=== PATIENT | male | born 1965 | race Caucasian/White ===

== ENCOUNTER 2023-07-11 10:44 | Observation (INO) ==
--- NOTE | 2023-06-06 10:25 | PAT Medication Instructions ---
Medication Instructions Date of Service June 06, 2023 Home Medications allopurinol 300 mg tablet 300 mg PO QAM hydrochlorothiazide 25 mg tablet 25 mg PO QAM lisinopril 40 mg tablet 40 mg PO QAM oxycodone 5 mg tablet 5 - 10 mg PO DAILY PRN Pain DO NOT take the morning of surgery hydrochlorothiazide 25 mg tablet 25 mg PO QAM lisinopril 40 mg tablet 40 mg PO QAM Take morning of surgery With a small sip of water, OTHERWISE NOTHING TO EAT OR DRINK AFTER MIDNIGHT: allopurinol 300 mg tablet 300 mg PO QAM oxycodone 5 mg tablet 5 - 10 mg PO DAILY PRN Pain (if needed) Take evening before surgery oxycodone 5 mg tablet 5 - 10 mg PO DAILY PRN Pain (if needed) Other Notes If you have any questions please call us at [phone] or [phone] or [phone] or [phone]
--- NOTE | 2023-06-09 13:01 | Anesthesiology Consultation ---
Date of Service June 09, 2023 Assessment & Plan (1) Encounter for pre-operative examination: Chart Review Chart Review: Acceptable Risk for Surgery (pending PCP clearance and response from surgeon's office regarding OPJ status ) and Patient seen in Pre Admission Testing - Awaiting PCP clearance 06/23/[address] Bay- Andrés Benitez - Awaiting response from surgeon's office if patient is being done as 23 hour observation vs OPJ Large incisional hernia to right side - usually wears binder - may need pillow to area when positioned for surgery; use caution when transferring Per PAT appt on 06/09/23, no recent illness/disease exposures, illness related symptoms, or recent illness/disease positive tests. Will leave to surgeon's discretion if preop Covid testing needed Teaching & Discussion Pre-Anesthesia Teaching/Discussion Notes: Instructed NPO after midnight before surgery,except medications with 15 cc of water. Medication instructions provided according to the PAT guidelines. History Surgery Operation Date: 07/11/23 10:50 Proposed Procedures p Left Total Knee Replacement - Holger Merchant MD Height/Weight Height: 6 ft 3 in Weight: 125.1 kg Allergies Allergy/AdvReac Type Severity Reaction Status Date / Time No Known Allergies Allergy Verified 06/06/23 07:38 Medications Home Medications Medication Instructions Recorded Confirmed Last Taken allopurinol 300 mg tablet 300 mg PO QAM 06/06/23 06/06/23 Unknown hydrochlorothiazide 25 mg tablet 25 mg PO QAM 06/06/23 06/06/23 Unknown lisinopril 40 mg tablet 40 mg PO QAM 06/06/23 06/06/23 Unknown oxycodone 5 mg tablet 5 - 10 mg PO DAILY PRN Pain 06/06/23 06/06/23 Unknown Past Medical History Medical History Incisional hernia Right side (at partial nephrectomy site)- wears binder daily Abdominal hernia on pt's right side where he had his kidney surgery-wears binder daily Cancer of kidney Dx'ed 2010, s/p partial nephrectomy- no chemo or XRT Hypertension Hx of renal calculi Gout No recent flares Exercise / Class Metabolic Activity III < 4 Walking/Shop/Light housework (no chest pain or SOB with flat surface ambulation ) Past Surgical History Surgical History Hx laparoscopic cholecystectomy Hx of partial nephrectomy rt side [place] teeth extracted S/P cystoscopy with ureteral stent placement Past Anesthesia History No Hx of Anesthesia Complications and No Family Hx of Anesthesia Complications History of PONV No Hx of PONV and No Hx of Motion Sickness Social History Smoking Status: Never smoker Do You Dip or Chew Tobacco: No Hx Alcohol Use: No Hx Substance Use: No substance use type: does not use Review of Systems Patient denies chest pain, shortness of breath, dyspnea on exertion, reflux, cough, wheezing, palpitations. No hx of seizures, stroke, NV, apnea/snoring. No hx of blood clots or blood transfusions Physical Exam Vital Signs VITALS BP 143/82 P 68 TEMP 98.3 SP02 96% RESP 16 Constitutional no acute distress ENMT Mouth: no TMJ clicking Thyromental Distance: > or= 3.5 Finger Breadths (3.5) Mallampati Class: II [place] to side tooth Neck + limited neck extension Respiratory normal respiratory effort; no respiratory distress Auscultation: lungs clear to auscultation bilaterally; no wheezes Cardiovascular Rate/Rhythm: regular rate and regular rhythm Heart Sounds: no murmur Vessels: no carotid bruit Musculoskeletal Spine: no pain with cervical ROM Extremities: extremities normal to inspection Psychiatric Orientation: alert Lab Results Anesthesia Preop Results Results Anesthesia Widget: WBC 10.19 K/ul (4.8-10.8) 06/09/23 Hgb 17.1 g/dl (14.0-18.0) 06/09/23 Hct 50.9 % (42.0-52.0) 06/09/23 Plt 253 K/uL (130-400) 06/09/23 Na 139 mmol/L (136-145) 06/09/23 K 3.6 mmol/L (3.5-5.1) 06/09/23 Cl 102 mmol/L (98-107) 06/09/23 CO2 29 mmol/L (21-32) 06/09/23 BUN 27 mg/dl (6-23) H 06/09/23 Creat 1.38 mg/dl (0.6-1.4) 06/09/23 Glucose Level 104 mg/dl (70-99(Fasting)) H 06/09/23 PT 10.9 Seconds (9.0-12.0) 06/09/23 PTT 30 Seconds (21-31) 06/09/23 INR 1.0 (0.9-1.1) 06/09/23 HA1c 5.8 % (4.5-5.6) H 06/09/23 Urine Color Yellow 06/09/23 Urine Appearance Clear (Clear) 06/09/23 Urine pH 5.0 (4.5-7.5) 06/09/23 Urine Specific [place] 1.018 (1.000-1.030) 06/09/23 Urine Protein Negative (Negative) 06/09/23 Urine Glucose (UA) Negative (Negative) 06/09/23 Urine Ketones Negative (Negative) 06/09/23 Urine Blood Negative (Negative) 06/09/23 Urine Nitrite Negative (Negative) 06/09/23 Urine Bilirubin Negative (Negative) 06/09/23 Urine Urobilinogen Negative (Negative) 06/09/23 Urine Leukocyte Esterase Negative (Negative) 06/09/23 Blood Type O Positive 06/09/23 Antibody Screen NEGATIVE 06/09/23 Testing Electrocardiogram Date: 06/09/23 NSR with sinus arrhythmia at 83bpm Rightward axis Chest X-Ray Date: 06/09/23 Findings: + NAD
--- NOTE | 2023-07-07 16:24 | History & Physical Report ---
Date of Service July 07, 2023 Assessment & Plan (1) Degenerative joint disease of left knee: Plan: Left total knee replacement with patient-specific implants overnight stay most likely home [facility] no NSAIDs due to partial nephrectomy History of Present Illness Chief Complaint: Bilateral knee pain left greater than right Primary Care Provider: [facility] PCP Patient is an obese 57-year-old male with greater than 2-year history of bilateral knee pain left greater than right. The pain is associated with limping decreased range of motion decreased walking tolerance and weakness. Patient also notes instability. Patient has failed bracing and also injections as well as topical NSAIDs. He requires a cane for ambulation. He has radiographic evidence of advanced arthritis and is admitted for elective left knee replacement as first of two-stage procedures. Allergies Allergy/AdvReac Type Severity Reaction Status Date / Time No Known Allergies Allergy Verified 06/06/23 07:38 Home Medications Medication Instructions Recorded Confirmed Type allopurinol 300 mg tablet 300 mg PO QAM 06/06/23 06/06/23 History hydrochlorothiazide 25 mg tablet 25 mg PO QAM 06/06/23 06/06/23 History lisinopril 40 mg tablet 40 mg PO QAM 06/06/23 06/06/23 History oxycodone 5 mg tablet 5 - 10 mg PO DAILY PRN Pain 06/06/23 06/06/23 History Past Med/Surg History Medical History Incisional hernia Right side (at partial nephrectomy site)- wears binder daily Abdominal hernia on pt's right side where he had his kidney surgery-wears binder daily Cancer of kidney Dx'ed 2010, s/p partial nephrectomy- no chemo or XRT Hypertension Hx of renal calculi Gout No recent flares Surgical History Hx laparoscopic cholecystectomy Hx of partial nephrectomy rt side [place] teeth extracted S/P cystoscopy with ureteral stent placement Social History Smoking Status: Never smoker Second Hand Exposure: No; Do You Dip or Chew Tobacco: No; Tobacco Cessation Education Requested by Patient: No Hx Alcohol Use: No Hx Substance Use: No Preferred Language: Macedonian Communication Ability: Effective Explosive Specialist Required: No Beliefs That Will Affect Care: None Current Living Situation: Spouse and Family Other Information That Helps Us Care for You: No Feels Safe at Home: Yes Safety Concerns: Feels Safe At This Time Assistive Devices: None Review of Systems Review of Systems: Knee pain Physical Exam Physical Exam: Weight 125 kg BMI 36 General: Obese male who appears his stated age HEENT: NCAT, EOMI, PERRLA. Neck: Negative bruits Heart: Regular rate and rhythm without murmurs Lungs: Breath sounds clear and present in all lopez Abdomen: Obese soft nontender bowel sounds are positive Extremities: Left knee shows varus alignment restricted range of motion 15 to 110 degrees trace medial laxity large effusion and pain with range of motion. Neurological and vascular: Intact Results & Data Results & Data Vital Signs (Past 12 Hours) Blood pressure 136/84 Pulse 86
[~2023-07-11 10:44] MED LIST: ACETAMINOPHEN 500 MG TAB PO SCH; FAMOTIDINE 20 MG TAB PO SCH; GABAPENTIN 600 MG DOSE PO SCH; LR 500ML BOLUS, THEN 15ML/HR IV SCH; LR 60ML/HR IV SCH; METOCLOPRAMIDE HCL 10 MG TABLET PO SCH; ROPIVACAINE 0.5% 5 MG/ML 30 ML VIAL ONE; ROPIVACAINE 0.5% HCL/PF 150 MG, BUPIVACAINE 0.75% MPF 20 ML, EPINEPHrine 30MG/30ML (OR ... INSTIL SCH; TRANEXAMIC ACID 1,000 MG **IV Intra-op IV SCH; TRANEXAMIC ACID 1,000 MG **IV Pre-op IV SCH; dexAMETHasone 4 MG TAB PO SCH; oxyCODONE HCL 10 MG TABCR (OxyCONTIN) PO SCH
[2023-07-11] MEDS ORDERED: MIDAZOLAM HCL 1 MG/ML 2ML VIAL ONE (12:05)
[2023-07-11] MEDS ORDERED: ATROPINE SULFATE 0.1 MG/ML 10ML SYR IV PRN (12:19)
[2023-07-11] MEDS ORDERED: ePHEDrine sulfate 50 MG/ML AMP IV PRN (12:19)
[2023-07-11] MEDS ORDERED: HYDROmorphone INJ 1 MG/ML SYRINGE IV PRN (12:19)
--- NOTE | 2023-07-11 12:42 | History & Physical Bridge Note ---
Date of Service July 11, 2023 History & Physical Bridge Note I have examined the patient, reviewed the History & Physical and in the interval since the performance of the History & Physical I have noted the following changes of clinical significance: no changes noted
[2023-07-11] MEDS ORDERED: ORTHO JOINT ANESTHETIC ONE (13:08)
[2023-07-11] MEDS ORDERED: PROPOFOL IV EMULSION 10 MG/ML 20 ML VIAL IV ONE ×2 (13:38→14:07)
[2023-07-11] MEDS ORDERED: ONDANSETRON INJ 2 MG/ML 2 ML VIAL ONE (13:38)
[2023-07-11] MEDS ORDERED: LIDOCAINE 2% 2 ML VIAL/AMP(20MG/ML) INFIL ONE (13:38)
--- NOTE | 2023-07-11 14:34 | Post Operative Brief Note ---
Immediate Post Op Note v1 Date of Surgery July 11, 2023 Pre & Post Diagnosis Operation Date: 07/11/23 12:30 Pre-Op Diagnosis: Left Knee Osteoarthritis Post-Op Diagnosis: Left Knee Osteoarthritis I identified the patient and participated in the time-out.: Yes Procedure Operation Date: 07/11/23 12:30 Actual Procedures p Left Total Knee Replacement(Left) - Holger Merchant MD Surgeon Holger Merchant MD Solutions Sales Executive Saad Varela PADebo Estimated Blood Loss 150 Findings Consistent with Post-Op Diagnosis Drains Jose Rafael-Freeman Drain
[2023-07-11] MEDS ORDERED: NALOXONE HCL 0.4 MG/1 ML VIAL/CARP IV PRN (14:36)
[2023-07-11] MEDS ORDERED: ONDANSETRON INJ 2 MG/ML 2 ML VIAL IV PRN (14:36)
[2023-07-11] MEDS ORDERED: MAGNESIUM HYDROXIDE SUSP 30 ML UDC PO PRN (14:36)
[2023-07-11] MEDS ORDERED: oxyCODONE HCL IR 5 MG TAB (IMMEDIATE RELEASE) PO PRN (14:36)
[2023-07-11] MEDS ORDERED: bisacodyL 10 MG SUPP PR PRN (14:36)
[2023-07-11] MEDS ORDERED: METOCLOPRAMIDE HCL INJ 5 MG/ML 2 ML VIAL IV PRN (14:36)
[2023-07-11] MEDS ORDERED: NO NSAIDS SCH (14:45)
--- NOTE | 2023-07-11 14:55 | Operative Report ---
Post Operative Report Pre & Post Diagnosis Operation Date: 07/11/23 12:30 Pre-Op Diagnosis: Left Knee Osteoarthritis Post-Op Diagnosis: Left Knee Osteoarthritis I identified the patient and participated in the time-out.: Yes Procedure Operation Date: 07/11/23 12:30 Actual Procedures p Left Total Knee Replacement(Left) - Holger Merchant MD Surgeon Holger Merchant MD Nursing Clinical Director Saad VARGAS-C Estimated Blood Loss 150 Findings Consistent with Post-Op Diagnosis Severe degenerative changes with chronic absence of the anterior cruciate ligament Specimens Bone and cartilage fragments Indications Patient is a 58-year-old male who has bilateral severe end-stage arthritis of the knees with a chronic ACL insufficiency pattern. He has failed conservative management to include injections. Components used: [employer] journey 2 posterior stabilized knee system: Femur size 8 with Oxinium coating, tibia size 8 x 9, patella size 41 oval. Note: Saad VARGAS was present and assisted throughout due to the complicated nature of this case. He help with preparation and set up an certified surgical first assistant throughout. He assisted with hemostasis and exposure throughout the procedure. He also closed the capsule subcutaneous and skin layers and applied the postop dressing. Description of Procedure Following satisfactory spinal anesthesia patient was supine on the operating room table. The left lower extremity was prepared with ChloraPrep and draped sterilely. A surgical timeout was performed. A midline incision was made with a median parapatellar arthrotomy. Hemostasis was obtained. The knee showed the changes noted above. The posterior cruciate ligament was excised. Attention was then turned to the patella because of the large size of the patient. The patella was freehand cut and sized for a 41 button which enhanced exposure to the lateral gutter. The patient matched femoral block was applied. Femoral distal resection and rotation was set and completed the 4-in-1 block was used to finish preparation of the femur. The tibial meniscal fragments were excised. The patient matched tibial block was applied. Tibial resection was completed. Soft tissue balancing was completed in flexion and extension and a trial reduction was performed. This showed good tensioning and stability on the collateral ligaments from full extension to about 110 degrees flexion which was limited by the size of the patient's leg. The patella tracked well throughout. The trial components were removed. The capsule was prepared with the local anesthetic. After irrigation and drying the components were cemented using Cydney Z be cement cementing the tibia first, femur second, and patella third. When the cemented hardened the knee was checked and showed similar stability and patellar tracking. The wound was irrigated with 500 cc of experience irrigation. A Hemovac drain was placed. The capsulotomy was closed with interrupted [id number] sutures of 1 Vicryl and a running suture of 0 strata fix. The subcutaneous tissues were closed with 0 strata fix deep and 3 oh strata fix superficial. Dermabond Steri- Strips and a negative pressure dressing were applied. A compressive bandage was then applied. Patient was returned to his bed in stable condition. I attest to the content of the Intraoperative Record and any orders documented therein. Any exceptions are noted below.
--- NOTE | 2023-07-11 16:18 | Anesthesiology Progress Note ---
Date of Service July 11, 2023 Anesthesia Post Procedure Vital Signs Vital Signs: Temp Pulse Resp BP Pulse Ox O2 Del Method 07/11/23 16:05 75 18 110/63 92 Room Air 07/11/23 15:55 97.2 F L 77 18 106/61 93 Room Air 07/11/23 15:45 97.2 F L 78 18 107/63 91 Room Air 07/11/23 15:35 97.2 F L 86 19 112/69 92 Room Air 07/11/23 15:25 88 18 115/82 96 Room Air 07/11/23 15:15 85 12 117/71 95 Room Air 07/11/23 15:06 97.7 F 95 H 20 125/76 93 Room Air 07/11/23 11:43 98.1 F 83 20 159/94 H 96 Room Air Pain Intensity Left Knee: Pain Intensity: 6 Transfer of Care Handoff Completed per policy Notes Mental Status: alert / awake / arousable and participated in evaluation Patient Amnestic to Procedure: Yes Nausea / Vomiting: adequately controlled Pain: adequately controlled Airway Patency, RR, SpO2: stable & adequate BP & HR: stable & adequate Hydration State: stable & adequate Neuraxial Anesthesia: was administered and sensory block is resolving Anesthetic Complications: no major complications apparent and Pt Satisfied with anesthetic care
[2023-07-11] MEDS: SODIUM CHLORIDE 0.9% 1,000 ML IV SCH ×2 (17:46→23:00)
[2023-07-11] MEDS ORDERED: SENNA 8.6 MG TAB PO SCH (21:00)
[2023-07-11] MEDS: ceFAZolin 2000MG 2,000 MG/15 ML SYR IV SCH ×2 (21:36→21:45)
[2023-07-11] MEDS: ASPIRIN 81 MG ECTAB PO SCH (21:37)
[2023-07-11] MEDS: DOCUSATE SODIUM 100 MG CAP PO SCH (21:38)
[2023-07-11] MEDS: ACETAMINOPHEN 500 MG TAB PO SCH (21:40)
[2023-07-12] MEDS: ACETAMINOPHEN 500 MG TAB PO SCH (05:58)
[2023-07-12 06:22] LABS: Basophils # (auto) 0.02 K/uL (0.00-0.20); Basophils % (auto) 0.2 %; Hematocrit (blood only) 39.6 % (42.0-52.0); Hemoglobin 13.4 g/dl (14.0-18.0); Immature Granulocytes # (auto) 0.05 K/uL (0.01-0.20); Immature Granulocytes % (auto) 0.4 %; Lymphocytes % (auto) 11.6 %; Mean Corpuscular Hemoglobin 28.5 pg (25.0-34.0); Mean Corpuscular Hgb Conc 33.8 g/dL (32.0-36.0); Mean Corpuscular Volume 84.1 fL (80.0-100.0); Mean Platelet Volume 11.2 fL (9.4-12.4); Monocytes # (auto) 0.78 K/uL (0.11-0.59); Neutrophils # (auto) 10.63 K/uL (1.40-6.50); Neutrophils % (auto) 81.8 %; Platelet Count 227 K/uL (130-400); RDW Coefficient of Variation 14.3 % (11.5-14.5); RDW Standard Deviation 43.9 fL (36.4-46.3); Red Blood Count 4.71 M/uL (4.70-6.10); White Blood Count 12.98 K/ul (4.8-10.8)
[2023-07-12 06:46] LABS: BUN Creatinine Ratio 17.3 (10-20); Calcium 8.8 mg/dl (8.6-10.3); Creatinine Clr Calc Pharmacy 85.1 ml/min; Est GFR (African American) 67.3 ml/min; Est GFR (Non-African American) 58.1 ml/min; Potassium 3.3 mmol/L (3.5-5.1)
--- NOTE | 2023-07-12 07:42 | Orthopedic Progress Note ---
Date of Service July 12, 2023 Assessment & Plan (1) Degenerative joint disease of left knee: Plan: POD 1 s/p Left total knee replacement PT/OT protocols. Weightbearing as tolerated. DVT prophylaxis-aspirin p.o. twice daily, SCDs pain management as written. No nonsteroidal anti-inflammatories at this time Secondary to previous nephrectomy. Mild hypokalemia-we will give 40 meq p.o. today and have patient follow-up with a BMP later this week. DC planning-patient will have home health services upon DC. Plan for discharge to home today. Admission and Anticipated Discharge Date Admission Date: July 11, 2023 Subjective postop day 1 patient sitting up in bed awake and alert. No complaints this morning. Pain is controlled. States he was up to the bathroom several times and he feels his ambulation went very well. Physical Exam Physical Exam: Dressings are clean, dry, and intact. Calves are soft and nontender. Neurovascular intact. Toes are mobile. He has good dorsiflexion and plantarflexion of the left foot. Hemovac drainage was 50 cc from the previous shift. Results & Data Vital Signs (Past 12 Hours) Vital Signs Temp Pulse Pulse Resp BP Pulse Ox O2 Del Method 07/12/23 04:24 36.5 C 64 16 101/65 94 Room Air 07/11/23 23:42 67 16 106/66 93 Room Air 07/11/23 20:33 36.6 C 81 16 118/72 95 Room Air Laboratory Results Laboratory Results WBC 12.98 K/ul (4.8-10.8) H 07/12/23 05:27 RBC 4.71 M/uL (4.70-6.10) 07/12/23 05:27 Hgb 13.4 g/dl (14.0-18.0) L 07/12/23 05:27 Hct 39.6 % (42.0-52.0) L 07/12/23 05:27 MCV 84.1 fL (80.0-100.0) 07/12/23 05:27 MCH 28.5 pg (25.0-34.0) 07/12/23 05:27 MCHC 33.8 g/dL (32.0-36.0) 07/12/23 05:27 RDW Std Deviation 43.9 fL (36.4-46.3) 07/12/23 05:27 RDW Coeff of Tianna 14.3 % (11.5-14.5) 07/12/23 05:27 Plt Count 227 K/uL (130-400) 07/12/23 05:27 MPV 11.2 fL (9.4-12.4) 07/12/23 05:27 Immature Gran % (Auto) 0.4 % 07/12/23 05:27 Neut % (Auto) 81.8 % 07/12/23 05:27 Lymph % (Auto) 11.6 % 07/12/23 05:27 [place] % (Auto) 6.0 % 07/12/23 05:27 Eos % (Auto) 0.0 % 07/12/23 05:27 Baso % (Auto) 0.2 % 07/12/23 05:27 Neut # (Auto) 10.63 K/uL (1.40-6.50) H 07/12/23 05:27 Lymph # (Auto) 1.50 K/uL (1.20-3.40) 07/12/23 05:27 [place] # (Auto) 0.78 K/uL (0.11-0.59) H 07/12/23 05:27 Eos # (Auto) 0.00 K/uL (0.00-0.50) 07/12/23 05:27 Baso # (Auto) 0.02 K/uL (0.00-0.20) 07/12/23 05:27 Immature Gran # (Auto) 0.05 K/uL (0.01-0.20) 07/12/23 05:27 Sodium 138 mmol/L (136-145) 07/12/23 05:27 Potassium 3.3 mmol/L (3.5-5.1) L 07/12/23 05:27 Chloride 104 mmol/L (98-107) 07/12/23 05:27 Carbon Dioxide 26 mmol/L (21-32) 07/12/23 05:27 Anion Gap 8 (3-11) 07/12/23 05:27 BUN 23 mg/dl (6-23) 07/12/23 05:27 Creatinine 1.33 mg/dl (0.6-1.4) 07/12/23 05:27 Est Cr Clr Drug Dosing 85.1 ml/min 07/12/23 05:27 Est GFR ( Amer) 67.3 ml/min 07/12/23 05:27 Est GFR (Non-Af Amer) 58.1 ml/min 07/12/23 05:27 BUN/Creatinine Ratio 17.3 (10-20) 07/12/23 05:27 Glucose 190 mg/dl (70-99(Fasting)) H 07/12/23 05:27 Calcium 8.8 mg/dl (8.6-10.3) 07/12/23 05:27
[2023-07-12] MEDS ORDERED: POTASSIUM CHLORIDE CRTAB 20 MEQ TABCR PO STA (07:45)
[2023-07-12] MEDS: DOCUSATE SODIUM 100 MG CAP PO SCH (07:54)
[2023-07-12] MEDS: ASPIRIN 81 MG ECTAB PO SCH (07:55)
[2023-07-12] MEDS ORDERED: hydroCHLOROthiazide 25 MG TAB PO SCH (09:00)
[2023-07-12] MEDS ORDERED: allopurinoL 300 MG TAB PO SCH (09:00)
[2023-07-12] MEDS ORDERED: lisinopril 40 MG TAB PO SCH (09:00)
[2023-07-12] MEDS ORDERED: MULTIVITAMIN TAB PO SCH (09:00)
--- NOTE | 2023-07-19 07:27 | Discharge Summary ---
Date of Service July 19, 2023 Admission HPI Per Admitting Provider Patient is an obese 57-year-old male with greater than 2-year history of bilateral knee pain left greater than right. The pain is associated with limping decreased range of motion decreased walking tolerance and weakness. Patient also notes instability. Patient has failed bracing and also injections as well as topical NSAIDs. He requires a cane for ambulation. He has radiographic evidence of advanced arthritis and is admitted for elective left knee replacement as first of two-stage procedures. Admission Exam Per Admitting Provider Physical Exam: Weight 125 kg BMI 36 General: Obese male who appears his stated age HEENT: NCAT, EOMI, PERRLA. Neck: Negative bruits Heart: Regular rate and rhythm without murmurs Lungs: Breath sounds clear and present in all lopez Abdomen: Obese soft nontender bowel sounds are positive Extremities: Left knee shows varus alignment restricted range of motion 15 to 110 degrees trace medial laxity large effusion and pain with range of motion. Neurological and vascular: Intact Principal Diagnosis Left Knee Djd Discharge Data Allergies Allergy/AdvReac Type Severity Reaction Status Date / Time No Known Allergies Allergy Verified 07/11/23 11:12 Procedures Performed Operation Date: 07/11/23 12:30 Actual Procedures p Left Total Knee Replacement(Left) - Holger Merchant MD Ordered Studies 07/11/23 05:00 US - OR guided needle placemen Routine Hospital Course (1) Degenerative joint disease of left knee: Patient: ALEX MARTINEZ Admit Date: 07/11/23 MR#: [id number] Att Phy: Holger Merchant MD Acct ID: [id number] Seda Phy: PCP,NO Date: 1965 Fam Phy: Age: 58 Location: [facility] Sex: M Room/Bed: [place] [id number] cc: ~ *NOTICE TO RECEIVING DEMOCRAT/AGENCY This information is strictly Confidential and protected under [place] law. [place] law prohibits you from making any further disclosure of this information unless further disclosure is expressly permitted by the written consent of the person to whom it pertains or is authorized by law. A general authorization for the release of medical or other information is not sufficient for this purpose. Hospital accepts no responsibility if the information is made available to any other person, INCLUDING THE PATIENT. Date of Service July 12, 2023 Assessment & Plan (1) Degenerative joint disease of left knee: Plan: POD 1 s/p Left total knee replacement PT/OT protocols. Weightbearing as tolerated. DVT prophylaxis-aspirin p.o. twice daily, SCDs pain management as written. No nonsteroidal anti-inflammatories at this time Secondary to previous nephrectomy. Mild hypokalemia-we will give 40 meq p.o. today and have patient follow-up with a BMP later this week. DC planning-patient will have home health services upon DC. Plan for discharge to home today. Admission and Anticipated Discharge Date Admission Date: July 11, 2023 Subjective postop day 1 patient sitting up in bed awake and alert. No complaints this morning. Pain is controlled. States he was up to the bathroom several times and he feels his ambulation went very well. Physical Exam Physical Exam: Dressings are clean, dry, and intact. Calves are soft and nontender. Neurov ascular intact. Toes are mobile. He has good dorsiflexion and plantarflexion of the left foot. Hemovac drainage was 50 cc from the previous shift. Results & Data Vital Signs (Past 12 Hours) Vital Signs Temp Pulse Pulse Resp BP Pulse Ox O2 Del Method 07/12/23 04:24 36.5 C 64 16 101/65 94 Room Air 07/11/23 23:42 67 16 106/66 93 Room Air 07/11/23 20:33 36.6 C 81 16 118/72 95 Room Air Laboratory Results Laboratory Results WBC 12.98 K/ul (4.8-10.8) H 07/12/23 05:27 RBC 4.71 M/uL (4.70-6.10) 07/12/23 05:27 Hgb 13.4 g/dl (14.0-18.0) L 07/12/23 05:27 Hct 39.6 % (42.0-52.0) L 07/12/23 05:27 MCV 84.1 fL (80.0-100.0) 07/12/23 05:27 MCH 28.5 pg (25.0-34.0) 07/12/23 05:27 MCHC 33.8 g/dL (32.0-36.0) 07/12/23 05:27 RDW Std Deviation 43.9 fL (36.4-46.3) 07/12/23 05:27 RDW Coeff of [place] 14.3 % (11.5-14.5) 07/12/23 05:27 Plt Count 227 K/uL (130-400) 07/12/23 05:27 MPV 11.2 fL (9.4-12.4) 07/12/23 05:27 Immature Gran % (Auto) 0.4 % 07/12/23 05:27 Neut % (Auto) 81.8 % 07/12/23 05:27 Lymph % (Auto) 11.6 % 07/12/23 05:27 [place] % (Auto) 6.0 % 07/12/23 05:27 Eos % (Auto) 0.0 % 07/12/23 05:27 Baso % (Auto) 0.2 % 07/12/23 05:27 Neut # (Auto) 10.63 K/uL (1.40-6.50) H 07/12/23 05:27 Lymph # (Auto) 1.50 K/uL (1.20-3.40) 07/12/23 05:27 [place] # (Auto) 0.78 K/uL (0.11-0.59) H 07/12/23 05:27 Eos # (Auto) 0.00 K/uL (0.00-0.50) 07/12/23 05:27 Baso # (Auto) 0.02 K/uL (0.00-0.20) 07/12/23 05:27 Immature Gran # (Auto) 0.05 K/uL (0.01-0.20) 07/12/23 05:27 Sodium 138 mmol/L (136-145) 07/12/23 05:27 Potassium 3.3 mmol/L (3.5-5.1) L 07/12/23 05:27 Chloride 104 mmol/L (98-107) 07/12/23 05:27 Carbon Dioxide 26 mmol/L (21-32) 07/12/23 05:27 Anion Gap 8 (3-11) 07/12/23 05:27 BUN 23 mg/dl (6-23) 07/12/23 05:27 Creatinine 1.33 mg/dl (0.6-1.4) 07/12/23 05:27 Est Cr Clr Drug Dosing 85.1 ml/min 07/12/23 05:27 Est GFR ( Amer) 67.3 ml/min 07/12/23 05:27 Est GFR (Non-Af Amer) 58.1 ml/min 07/12/23 05:27 BUN/Creatinine Ratio 17.3 (10-20) 07/12/23 05:27 Glucose 190 mg/dl (70-99(Fasting)) H 07/12/23 05:27 Calcium 8.8 mg/dl (8.6-10.3) 07/12/23 05:27 Signed By: <Electronically signed by Saad Varela PA-C> 07/12/23 0742 Created: 07/12/23 0735 Total Time Total Time Spent Total Time Spent (In Minutes): 5 Discharge Plan Discharge Items Patient Disposition: Home - Home Health Services Reason For Visit: POST SURGICAL CARE Discharge Diagnosis: Left Knee Osteoarthritis Activity: Per Instructions section Weightbearing: Left weightbearing Weightbearing Comment: as tolerated with walker Non-emergency contact: Surgeon Call non-emergency contact if: you have any medication questions, your pain is not controlled, your temperature is above 101.5, your wound has increased redness and your wound has increased drainage Follow-up/Referrals: Holger Merchant MD [Surgeon] - (Follow up with Dr. Merchant or his PA in 2 weeks from the day of your surgery for your first post operative visit. ) [facility] [Non-Staff] - (as per surgeon's office ) PCP,NO [Primary Care Provider] - Diet: Regular Ambulatory Orders: Basic Metabolic Panel (Routine) Timeframe: 2 Days Location: Determined by Patient Ordered By: Saad Varela [facility] Attending Provider Instructions: DR. ANDERSON POST-OP INSTRUCTIONS FOR TOTAL KNEE ARTHROPLASTY PLEASE REVIEW PRIOR TO SURGERY Day of Surgery You will be admitted and meet the nursing and anesthesia team. Dr. Merchant will see you and sign your operative side. Anesthesia will place your spinal anesthetic in the pre-op area Your surgery will be performed and last approximately 1 2 hours. Upon waking, you will notice a dressing and ice pack on your knee. If you purchased the Breg Cold Compression unit, this will be applied to your knee. You will remain in the recovery room for 1 2 hours, then be transferred to your room in the ambulatory surgical area if you are to go home the same day of your surgery or on the orthopedic floor if you will be staying overnight. Most of Dr. Anderson total knee patients go home the same day as surgery. This depends on how well you feel. Patients generally seem to feel better in their own home environment, and the risk of exposure to bad bugs is much lower. (Your post-operative medications will be sent to your pharmacy approximately 1-2 days prior to your procedure) Day 1 post-op (if you have an overnight stay in the hospital) You will have bloodwork drawn in the morning Physical therapy will evaluate you in the morning. You will start getting out of bed and ambulating with a walker. They will instruct you on knee motion exercises. Use your cold packs or your cold compression unit as instructed. This will decrease swelling and minimize pain. [employer] field supervisor will discuss your discharge plan. Discharge will generally be around 11am Day 1 post-op (all patients) You will be taking Aspirin 81mg twice for 4 weeks to decrease the risk of a blood clot. You will most likely have a drain and MAGALY (superficial wound VAC) dressing post-operatively covered by an lucia wrap dressing. (home nurse will remove lucia wrap/drain) This will keep your incision dry as well as aid in early healing. The batteries will wear out and the VAC will lose suction around day 6 7 post-op. At that time, you may turn off the device and disconnect it from your dressing. You may remove your dressing 10 days after surgery if it becomes bothersome and irritating to your skin. If the dressing appears to be saturated, please call our office. Day 2-14 post-op You will have a home nurse visit to assess your status and remove your lucia wrap/drain on post-op day 2. You are permitted to shower immediately with the VAC. Do not soak the dressing let the shower flow on your opposite side, and pat dry the plastic. Once the dressing has been removed, you may shower normally with the incision exposed. Do not rub the area simply let soapy water run over the incision and lightly pat dry. Therapy will begin on post-op day 3. Your therapy prescription will be sent to your home therapy company/therapist You should continue doing your home exercises Week 2 post-op and forward You will have your first post-op appointment 2 weeks after surgery which should have been scheduled for you by our office. This appointment will be to check your incision, progression of therapy and pain control. You will continue to use a cane or a walker until you feel safe enough to stop using it. You will have a 6-week post-op appointment which should have been scheduled for you by our office. X-rays will be taken to evaluate the prosthesis. You will continue to advance range of motion. By 3 to 4 months after surgery, you should have almost full range of motion and may resume most activities. You may have some pain around the knee with certain activities this is completely normal. You will be scheduled for a 1-year post-op appointment to assess your outcome (sooner if Dr. Merchant feels it is necessary). Pain: The immediate post-op period after knee replacement surgery can be painful. You should take your pain medicine as you need it, especially prior to physical therapy and bedtime. Your pain WILL get better, and you may transition to a milder pain medicine (with less side effects, such as Tylenol) as soon as possible. It is common to have pain at night that interferes with sleep this can last for several months. Pain medicines can cause nausea and constipation do not take more than you need. You may be prescribed one or more of the following medications: 1. Celebrex this controls inflammation and makes pain medications more effective it will be taken once or twice a day 2. Tylenol a pain medicine that can help to decrease your pain you should take 1000mg three times a day 3. Tramadol a pain medicine that can be taken every 4-6 hours (instead of Oxycodone) as needed to control your pain 4. Oxycodone a VERY strong pain medicine that can be taken every 4- 6 hours (instead of Tramadol) as needed to control your pain. This medication has the most side effects. 5. Aspirin 81mg blood thinning medication to help minimize the risk of development of blood clots unfortunate side effects of pain medicine include nausea and constipation if you experience these issues or have any questions about your post-op m vanesa, call [facility] at for assistance/advice on how to manage these issues Physical therapy is a VERY important part of knee replacement surgery. The office will arrange for a therapist to come to your home to instruct you on exercises. It is very important to practice on your own (or with the assistance of a family member). While in the hospital, you will be shown a series of home exercises you should perform these exercises 3 4 times daily in addition to physical therapy. After the completion of home therapy (approx. 2 weeks), most therapy exercises can be done on your own. You should get up to walk several times a day. Try not to stand longer than 1 hour at a time to minimize swelling. If you develop swelling, you need to elevate your legs/feet at or above the level of your heart. You may progress from walker to cane to ambulating independently as you feel comfortable. Unless it is an emergency, YOU ARE NOT PERMITTED TO HAVE ANY DENTAL CLEANING/WORK UNTIL 3 MONTHS AFTER SURGERY. You will be required to take an antibiotic prior to any dental cleaning or dental work in order to prevent your joint prothesis from getting infected. This medication is a one time per visit dose to be taken one hour prior to appointment. You may call our office for this prescription or your dentist may be willing to prescribe the medication. Remember to contact [facility] at if you develop any signs of infection which include increased swelling, pain, redness, drainage from incision, warmth, fever, chills or severe pain unrelieved by pain medication. If you develop any chest pain or shortness of breath, you should proceed immediately to the closest Emergency Room. It is normal to run a low-grade fever after surgery. If your fever is consistent at 101.0 or higher, you will need to contact the office. Stand-Alone Forms: Anesthesia/Sedation, Adult, Person [facility] Medications and DC Order Prescriptions: Continued allopurinol 300 mg Tablet 300 mg PO QAM hydrochlorothiazide 25 mg Tablet 25 mg PO QAM lisinopril 40 mg Tablet 40 mg PO QAM Held oxycodone 5 mg Tablet 5 - 10 mg PO DAILY PRN (Reason: Pain) Hold Instructions: Take new prescription as written by Dr. Merchant. [place]/Other Patient Handouts: DVT Post Op Prevention Admission Data Admit Date/Time: 07/11/23 14:36 Attending Provider: Holger Merchant Admit Provider: Holger Merchant Primary Care Provider: PCP,NO Other Providers: [facility],Home [facility] Other Interventions: Discharge Summary Assessment (RN) Last Done: 07/12/23 10:25
== END 2023-07-12 11:50 | disposition home health service (06) ==
LOC: ASU 10:44 → PACUINP 10:44